=== PATIENT | female | born 1985 | race Caucasian/White ===

== ENCOUNTER 2020-01-23 22:14 | Emergency (ER) | payer MEDICAID, OTHER ==
--- NOTE | 2020-01-23 22:57 | EDM.PDOC ---
ED HPI GENERAL MEDICAL PROBLEM - General Chief Complaint: Skin Complaint Stated Complaint: LEFT TOP FOOT INJURY Time Seen by Provider: 01/23/20 22:36 Source of Information: Reports: Patient, Other (Caregiver at [facility]) History Limitations: Reports: No Limitations - History of Present Illness INITIAL COMMENTS - FREE TEXT/NARRATIVE: Mrs. Canas is a very pleasant 34-year-old woman with a past medical history significant for IV methamphetamine injection, who states that she developed a purplish lesion to the superior/lateral aspect of her left foot after injecting methamphetamine at that site around 4 months ago. She has not had a fever, and the lesion does not drain. She did not seek medical attention for it until yesterday, , 01/22/2020, when she presented to the walk-in clinic. She was told that the lesion likely represented some sort of a vascular abnormality, and she was told that a surgeon's office would contact her on her before this coming 01/28/2020. She has not heard from them yet. She now presents to the ED after striking the lesion at work, causing its size to increase. Here in the ED, the patient is found to be hemodynamically stable, afebrile, saturating 97% on room air. The patient states that she has been clean and sober since 11/13/2019. Other than the left foot lesion, the patient denies recent fever, chills, sore throat, ear pain, nasal or sinus congestion, cough, dyspnea, chest pain, palpitations, nausea, vomiting, constipation, diarrhea, abdominal pain, urinary symptoms, recent weight gain or weight loss, recent bloody bowel movements or black bowel movements, recent joint aches, headaches, or rashes. The patient does not have a PCP. Left Foot Pain Score (Numeric/FACES): 4 - Related Data Allergies Allergy/AdvReac Type Severity Reaction Status Date / Time No Known Allergies Allergy Verified 01/23/20 22:33 Home Meds: Home Meds OXcarbazepine [Oxcarbazepine] 150 mg PO BID 01/23/20 [History] cloNIDine HCL [Catapres] 0.2 mg PO BEDTIME 01/23/20 [History] cloNIDine [Catapres] 0.1 mg PO QAM 01/23/20 [History] Past Medical History HEENT History: Reports: Impaired Vision (wears glasses) Psychiatric History: Reports: Addiction (methamphetamine, alcohol), Anxiety, Depression, Panic Attack - Past Surgical History HEENT Surgical History: Reports: Oral Surgery (wisdom teeth extracted) Female Surgical History: Reports: Other (See Below) (LEEP) Dermatological Surgical History: Reports: Skin Graft (BLEs) Social & Family History - Family History Family Medical History: Noncontributory - Tobacco Use Smoking Status *Q: Current Every Day Smoker Years of Tobacco use: 28 Packs/Tins Daily: 0.5 Packs/Tins Daily Comment: Down from 1 ppd Second Hand Smoke Exposure: No - Caffeine Use Caffeine Use: Reports: Coffee, Energy Drinks, Soda, Tea - Alcohol Use Alcohol Use History: Yes Date of Last Drink: 11/13/19 Alcohol Use Frequency: Binges - Recreational Drug Use Recreational Drug Use: Yes Drug Use in Last 12 Months: Yes Recreational Drug Type: Reports: Marijuana/Hashish (last smoked 11/13/2019), Methamphetamine (last snorted, smoked, injected 11/13/2019) - Living Situation & Occupation Living situation: Reports: (), Other (Clean living home) Occupation: Employed ([employer]) ED ROS GENERAL - Review of Systems Review Of Systems: Comprehensive ROS is negative, except as noted in HPI. ED EXAM, SKIN/RASH Exam: See Below Exam Limited By: No Limitations General Appearance: Alert, WD/WN, No Apparent Distress Extremities: Other (There is a circular area of erythema measuring approximately 4 cm diameter on the superior/lateral aspect of the patient's left foot, within which is an approximately 3.5 x 2 cm raised purplish lesion, consistent with a hematoma. No increased calor to the left foot, when compared to the right. Neurovascular status of the left lower extremity is intact.) Course - Vital Signs Last Recorded V/S: Last Vital Signs Temp 36.3 C 01/23/20 22:31 Pulse 84 01/23/20 22:31 Resp 18 01/23/20 22:31 BP 139/86 01/23/20 22:31 Pulse Ox 97 01/23/20 22:31 - Re-Assessments/Exams Free Text/Narrative Re-Assessment/Exam: 01/23/20 22:52 As above, the patient has what appears to be a hematoma to the superior/lateral aspect of her left foot. Is does not appear to be infected, and I am not recommending antibiotics at this time. I am recommending that she simply take care to avoid injuring it, because if the skin tears, it will likely bleed a great deal. Since she was told at the walk-in clinic yesterday that she may not get a call from a surgeon's office until Sunday, I will refer her to Dr. Fuchs, whom she can call this coming Sunday. Departure - Departure Time of Disposition: 22:54 Disposition: Home, Self-Care 01 Condition: Good Clinical Impression: Hematoma of left foot - Discharge Information *PRESCRIPTION DRUG MONITORING PROGRAM REVIEWED*: Not Applicable *COPY OF PRESCRIPTION DRUG MONITORING REPORT IN PATIENT SIMI: Not Applicable Referrals: Lise Slade MD [Physician] - Additional Instructions: You were seen in the emergency room for worsening inflammation of a purplish lesion on the upper outer side of your left foot. Based on your history and physical examination, the lesion appears to be a hematoma = collection of blood. The lesion does not appear to be infected, and we are not recommending antibiotics at this time. We recommend that you keep the lesion clean with ordinary soap and water. Pat dry, then leave alone. You can apply a large Band-Aid, if necessary for work conditions, but we recommend that you do not apply Neosporin to the lesion. Follow-up with the Surgeon Dr. Lise Slade at the next available appointment. If any other problems, please do not hesitate to return to the ER. Sepsis Event Note (ED) - Evaluation Sepsis Screening Result: No Definite Risk - Focused Exam Vital Signs: Vital Signs Temp Pulse Resp BP Pulse Ox 01/23/20 22:31 36.3 C 84 18 139/86 97
== END 2020-01-23 23:05 | disposition home or self-care (01) ==
LOC: JD.ED 22:14
DX: S90.32XA Contusion of left foot, initial encounter (principal); F17.210 Nicotine dependence, cigarettes, uncomplicated; W22.8XXA Striking against or struck by other objects, initial encounter; Y99.0 Civilian activity done for income or pay
CPT/HCPCS: 99282

== ENCOUNTER 2020-07-04 01:22 | Emergency (ER) | payer MEDICAID ==
--- NOTE | 2020-07-04 01:48 | EDM.PDOC ---
ED HPI GENERAL MEDICAL PROBLEM - General Chief Complaint: Lower Extremity Injury/Pain Stated Complaint: INJURED LEFT ANKLE Time Seen by Provider: 07/04/20 01:33 Source of Information: Reports: Patient History Limitations: Reports: No Limitations - History of Present Illness INITIAL COMMENTS - FREE TEXT/NARRATIVE: This is a 35-year-old female. Tonight around 8 or 9:00 he stepped on a curb wrong and had an inversion injury to her left ankle. She thought she could tough it out but it got more painful and she feels like her toes are numb so she comes to the ER for evaluation. She does have a history of skin graft to that left ankle and foot. She denies any other acute injuries. Left Ankle Pain Score (Numeric/FACES): 3 - Related Data Allergies Allergy/AdvReac Type Severity Reaction Status Date / Time No Known Allergies Allergy Verified 07/04/20 01:39 Home Meds: Home Meds OXcarbazepine [Oxcarbazepine] 150 mg PO BID 01/23/20 [History] cloNIDine HCL [Catapres] 0.2 mg PO BEDTIME 01/23/20 [History] cloNIDine [Catapres] 0.1 mg PO QAM 01/23/20 [History] Past Medical History HEENT History: Reports: Impaired Vision (wears glasses) Other HEENT History: glasses Cardiovascular History: Reports: Hypertension Genitourinary History: Reports: Other (See Below) Other Genitourinary History: leep surgery 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: Musculoskeletal History: Reports: Other (See Below) Other Musculoskeletal History: skin graffs bilateral knees, bilateral feet, right hand Psychiatric History: Reports: Addiction (methamphetamine, alcohol), Anxiety, Depression, Panic Attack Dermatologic History: Reports: Other (See Below) Other Dermatologic History: skin graffs - Past Surgical History HEENT Surgical History: Reports: Oral Surgery (wisdom teeth extracted) Female Surgical History: Reports: Other (See Below) (LEEP) Dermatological Surgical History: Reports: Skin Graft (BLEs) Social & Family History - Family History Family Medical History: No Pertinent Family History - Caffeine Use Caffeine Use: Reports: Coffee, Energy Drinks, Soda, Tea - Living Situation & Occupation Living situation: Reports: (), Other (Clean living home) Occupation: Employed ([employer]) Review of Systems - Review of Systems Review Of Systems: See Below Constitutional: Denies: Chills, Fever Eyes: Reports: No Symptoms Ears: Reports: No Symptoms Nose: Reports: No Symptoms Mouth/Throat: Reports: No Symptoms Respiratory: Denies: Shortness of Breath, Cough Cardiovascular: Reports: No Symptoms GI/Abdominal: Reports: No Symptoms Genitourinary: Reports: No Symptoms Musculoskeletal: Reports: Foot Pain, Other (Ankle pain) Skin: Reports: No Symptoms Neurological: Reports: No Symptoms Psychiatric: Reports: No Symptoms ED EXAM, GENERAL - Physical Exam Exam: See Below Exam Limited By: No Limitations General Appearance: Alert, WD/WN, No Apparent Distress Eye Exam: Bilateral Eye: Normal Inspection Ears: Normal External Exam Nose: Normal Inspection Head: Normocephalic Neck: Supple Respiratory/Chest: No Respiratory Distress Back Exam: Full Range of Motion Extremities: Other (Left ankle reveals tenderness on the lateral malleolus but no significant or severe swelling, she is also tender over the proximal forefoot and the fourth and fifth proximal metatarsals. She has no medial malleolus tenderness noted. She has good capillary refill of each of her 5 toes and they are warm. She does complain of some numbness in the entire toes. She is able to dorsiflex and plantarflex some but side to side movement is tender. There is no other acute lower extremity injury or upper extremity injury.) Psychiatric: Normal Affect, Normal Mood Skin Exam: Warm, Dry Course - Vital Signs Last Recorded V/S: Last Vital Signs Temp 97.5 F 07/04/20 01:33 Pulse 125 H 07/04/20 01:33 Resp 20 07/04/20 01:33 BP 156/96 H 07/04/20 01:33 Pulse Ox 97 07/04/20 01:33 - Orders/Labs/Meds Orders: Active Orders 24 hr Category Date Time Status Ankle Min 3V Lt [CR] Stat Exams 07/04/20 01:45 Ordered Foot Comp Min 3V Lt [CR] Stat Exams 07/04/20 01:45 Taken DME for Discharge [COMM] Stat Oth 07/04/20 02:46 Ordered - Radiology Interpretation Free Text/Narrative:: X-rays of the left foot do not reveal any acute fractures X-rays of the left ankle do not reveal any acute fractures. - Re-Assessments/Exams Free Text/Narrative Re-Assessment/Exam: 07/04/20 02:47 Spoke to the patient regarding the x-ray results. She does not want crutches so we can fit her with a walking boot so that she can continue to work. The walking boot will be fitted by the nurse and dispensed from the ER by the provider. It is a cam left-sided walking boot that is provided for discharge. Departure - Departure Time of Disposition: 02:48 Disposition: Home, Self-Care 01 Condition: Fair Clinical Impression: Left ankle sprain Qualifiers: Encounter type: initial encounter Involved ligament of ankle: tibiofibular ligament Qualified Code(s): S93.432A - Sprain of tibiofibular ligament of left ankle, initial encounter Sprain of left foot Qualifiers: Encounter type: initial encounter Qualified Code(s): S93.602A - Unspecified sprain of left foot, initial encounter - Discharge Information *PRESCRIPTION DRUG MONITORING PROGRAM REVIEWED*: Not Applicable *COPY OF PRESCRIPTION DRUG MONITORING REPORT IN PATIENT SIMI: Not Applicable Instructions: Ankle Sprain, [id number], Foot Sprain, How to Use Cold Therapy Referrals: PCP,Not In Area [Primary Care Provider] - Forms: ED Department Discharge, ED Return to Work/School Form Additional Instructions: Use ice on and off for the next 24 to 48 hours on the areas that hurt, take Tylenol or ibuprofen as needed for pain, wear the walking boot when you are up and around and at work but take it off at nighttime when you are sleeping, follow-up with your family doctor this coming week for recheck, return to the ER if needed Sepsis Event Note (ED) - Evaluation Sepsis Screening Result: No Definite Risk - Focused Exam Vital Signs: Vital Signs Temp Pulse Resp BP Pulse Ox 07/04/20 01:33 97.5 F 125 H 20 156/96 H 97 - My Orders Last 24 Hours: My Active Orders 07/04/20 01:45 Ankle Min 3V Lt [CR] Stat Foot Comp Min 3V Lt [CR] Stat 07/04/20 02:46 DME for Discharge [COMM] Stat - Assessment/Plan Last 24 Hours: My Active Orders 07/04/20 01:45 Ankle Min 3V Lt [CR] Stat Foot Comp Min 3V Lt [CR] Stat 07/04/20 02:46 DME for Discharge [COMM] Stat
--- NOTE | 2020-07-04 09:57 | CR ---
Left foot: 3 views of the left foot were obtained. Comparison: No previous foot exam is available. Small metallic foreign body is projected between the fourth and fifth toes. Uncertain if this is outside the patient or represents a mild foreign body. Joint spaces are preserved. No acute fracture, dislocation or other bony abnormality is appreciated. Impression: 1. Metallic foreign body as noted above. 2. No acute bony abnormality is seen. Diagnostic code #3
--- NOTE | 2020-07-04 09:58 | CR ---
Left ankle: 3 views of the left ankle were obtained. Comparison: No prior ankle imaging is available. Soft tissue swelling is noted. Ankle mortise is symmetric. No acute fracture, dislocation or other bony abnormality is appreciated. Impression: 1. Soft tissue swelling. 2. No acute osseous abnormality is appreciated. Diagnostic code #2
== END 2020-07-04 03:03 | disposition home or self-care (01) ==
LOC: JD.ED 01:22
DX: S93.432A Sprain of tibiofibular ligament of left ankle, initial encounter (principal); S93.602A Unspecified sprain of left foot, initial encounter; I10 Essential (primary) hypertension; Z79.899 Other long term (current) drug therapy; X50.9XXA Other and unspecified overexertion or strenuous movements or postures, initial encounter
CPT/HCPCS: 73610-26-LT; 73610-LT; 73630-26-LT; 73630-LT; 99282; 99283-25

== ENCOUNTER 2020-08-15 12:55 | Emergency (ER) | payer MEDICAID, OTHER ==
[2020-08-15] MEDS ORDERED: Diphtheria,Pertussis(Acell),Tetanus Vaccine 0.5 ML Syringe IM ONE (13:07)
[2020-08-15] MEDS ORDERED: Lidocaine 1% 10 ML MDV INJECT ONE (13:17)
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
== END 2020-08-15 14:30 | disposition home or self-care (01) ==
LOC: JD.ED 12:55
DX: S61.215A Laceration without foreign body of left ring finger without damage to nail, initial encounter (principal); I10 Essential (primary) hypertension; Z79.899 Other long term (current) drug therapy; Z72.0 Tobacco use; W26.8XXA Contact with other sharp object(s), not elsewhere classified, initial encounter
CPT/HCPCS: 12001; 90471; 90715; 99282; 99282-25

== ENCOUNTER 2020-09-23 14:54 | Emergency (ER) | payer MEDICAID ==
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
[2020-09-23] MEDS ORDERED: Dextrose 5%-0.9% NaCl 1,000 ML IV SCH (15:30)
[2020-09-23] MEDS ORDERED: LORazepam 2 MG/ML SDV IVPUSH ONE (15:39)
[2020-09-23] MEDS: Potassium Chloride 10 MEQ in Premix Bag 1 BAG IV SCH ×2 (15:58→17:41)
[2020-09-23] MEDS ORDERED: Potassium Chloride 10 MEQ in Premix Bag 1 BAG IV ONE (16:41)
== END 2020-09-23 17:40 | disposition home or self-care (01) ==
LOC: JD.ED 14:54
DX: E87.6 Hypokalemia (principal); I10 Essential (primary) hypertension; Z79.899 Other long term (current) drug therapy; Z72.0 Tobacco use
CPT/HCPCS: 36415; 80048; 96365; 99284; J3480; J7042

== ENCOUNTER 2020-09-27 10:05 | Day surgery (SDC) | payer MEDICAID ==
[~2020-09-27 10:05] MED LIST: Lactated Ringers 1,000 ML IV SCH; Lidocaine 1%/Sod Bicarbonate in NS 8.4% 1 ML Syringe IDERM PRN; Sodium Chloride 0.9% 10 ML Syringe FLUSH PRN
[2020-09-27] MEDS ORDERED: Midazolam 1 MG/ML 2 ML SDV ONE (10:20)
[2020-09-27] MEDS ORDERED: fentaNYL 100 MCG/2 ML SDV ONE (10:20)
[2020-09-27] MEDS ORDERED: Lidocaine 2% with EPINEPHrine 1:200,000 20 ML SDV ONE (10:21)
[2020-09-27] MEDS ORDERED: Dexmedetomidine 200 MCG/2 ML SDV ONE (10:21)
[2020-09-27] MEDS ORDERED: Ropivacaine 0.5% 5 MG/ML 30 ML SDV ONE (10:38)
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
--- NOTE | 2020-09-27 12:07 | PCM.PRNOTE ---
- Free Text/Narrative Note: Postoperative regional pain control requested by surgeon. Pre-op Dx: Left Clavicle fracture Surgical procedure: Left Clavicle fracture ORIF Procedure: Left selective upper root interscalene block + left superficial cervical plexus block + left clavipectoral fascia injection with U/S guidance Requesting physician: Dr. David Eddy Risks and benefits discussed with the patient preoperatively including infection, bleeding, incomplete or failed block, possible nerve damage, local anesthetic toxicity. Chart reviewed, VS stable. Permit signed. Patient in preoperative room 2, stable , alert and awake. Time out performed at 11:12. Oxygen 3L via NC. Left side of the neck, shoulder and clavicle were prepped with Chloraprep x 1 and allowed to dry. Midazolam IV 4 mg given. Under aseptic technique, the brachial plexus and sternocleidomastoid muscle was identified at C5-6 level under ultrasound prior to needle insertion. Local infiltration with 2mls of 1% Lidocaine. 2" Stimuplex needle #22 G was inserted under US guidance. Under direct visualization of needle tip the injection into the facial plane between anterior scalene and sternocleidomastoid muscle was performed. Local anesthetic injected: 2% Lidocaine PF 1:200k epinephrine 5 mls and 0.5% Ropivacaine 5 mls in divided doses, maintaining negative aspiration. Then the needle was repositioned closer to the upper root of brachial plexus in the interscalene space, and additional 5 ml of 0.5% Ropivacaine with 1:200k of epinephrine and additives was injected under direct U/S guidance maintaining negative aspiration. Next, the probe was repositioned on top of the left clavicle and pectoralis major, subclavius and intercostal muscle layers were identified adjacent to the clavicle. Under direct ultrasound guidance 2% Lidocaine PF 1:200k epinephrine 5 mls and 10 mls of 0.5% Ropivacaine 1:200k of epinephrine and additives were injected under clavipectoral fascia medial to the fracture, maintaining negative aspiration. Blood was noted at one point, the needle was repositioned and cleared with NS and on subsequent aspiration no blood was noted. After that the probe was repositioned lateral to the fracture on top of the clavicle,and under direct ultrasound guidance 10 mls of 0.5% Ropivacaine with 1:200k of epinephrine and additives were injected under clavipectoral fascia lateral to the fracture, maintaining negative aspiration. Total amount of Ropivacaine used: 25 mls. Additives: 8 mg of Dexamethasone and 40 mcg of Dexmedetomidine. No local anesthetic toxicity was noted. Patient is drowsy but arousable, stable and tolerated the procedure well. Please see the attached U/S images Time: 11:12 - 11:32
[2020-09-27] MEDS ORDERED: Bupivacaine 0.25% 10 ML SDV ONE (12:12)
[2020-09-27] MEDS ORDERED: Propofol 200 MG/20 ML SDV ONE ×3 (13:37→14:25)
[2020-09-27] MEDS ORDERED: ceFAZolin 1 GM Vial ONE (13:50)
[2020-09-27] MEDS ORDERED: Lactated Ringers 1,000 ML ONE (14:34)
--- NOTE | 2020-09-27 15:18 | PCM48HPAN ---
Post Anesthesia Note - EVALUATION WITHIN 48HRS OF ANESTHETIC Vital Signs in Normal Range: Yes Patient Participated in Evaluation: Yes Respiratory Function Stable: Yes Airway Patent: Yes Cardiovascular Function Stable: Yes Hydration Status Stable: Yes Pain Control Satisfactory: Yes Nausea and Vomiting Control Satisfactory: Yes Mental Status Recovered: Yes Vital Signs: Last Vital Signs Temp 97.6 F 09/27/20 14:57 Pulse 97 09/27/20 15:00 Resp 12 09/27/20 14:57 BP 142/78 H 09/27/20 15:00 Pulse Ox 98 09/27/20 15:00
--- NOTE | 2020-09-27 15:43 | CR ---
Left clavicle: 3 views left clavicle were obtained. Study was obtained utilizing C-arm device. Comparison: No prior clavicle study is available. Study shows plate and screws within the clavicle affixing previous fracture. Fluoroscopy time is given as 3.0 seconds. Impression: 1. Procedural study as noted above. Diagnostic code #2
--- NOTE | 2020-09-27 17:59 | PCM.OPNOTE ---
- General Post-Op/Procedure Note Date of Surgery/Procedure: 09/27/20 Operative Procedure(s): open reduction internal fixation left midshaft clavicle fracture Pre Op Diagnosis: left midshaft clavicle fracture Post-Op Diagnosis: Same Anesthesia Technique: MAC, Regional Block Primary Surgeon: David Patel Anesthesia Provider: Yazan Zimmer Social Work Specialist: Darlyn Workman EBL in mLs: 10 Complications: None Condition: Good Free Text/Narrative:: Intake & Output 09/27/20 09/27/20 09/27/20 06:59 14:59 22:59 Intake Total 660 Balance 660
--- NOTE | 2020-10-03 18:52 | OR ---
DATE OF OPERATION: 09/27/2020 SURGEON: David Patel MD OPERATION PERFORMED: Open reduction and internal fixation of left midshaft clavicle fracture. PREOPERATIVE DIAGNOSIS: Left midshaft clavicle fracture. POSTOPERATIVE DIAGNOSIS: Left midshaft clavicle fracture. ANESTHESIA: MAC with regional block. ANESTHESIA PROVIDER: Shala Mathew. LEASING ASSOCIATE: Darlyn Workman PA-C ESTIMATED BLOOD LOSS: 10 mL. COMPLICATIONS: None. CONDITION: Stable. DESCRIPTION OF PROCEDURE: The patient was identified in the preoperative holding area. Proper site was marked and identified by the surgeon. The patient was taken back to the operating theater where after adequate anesthesia, the patient was placed supine on radiolucent table. Left upper extremity was then sterilely prepped and draped in the usual sterile fashion. OR wide time-out was performed. The patient received 2 grams of IV Ancef. At this time, the patient was placed in the reverse Trendelenburg position, standard anterior incision was made over the left midshaft clavicle fracture. This was taken through the platysma level. The patient was noted to have complete stripping of the periosteum near the fracture site. At this time, fracture site was identified it was curetted and rongeured of all fracture hematoma. [id number] reduction clamps were then used with a 6-hole [place] compression superior clavicle plate, it was found to be in adequate position on both AP and oblique views of the clavicle. At this time, one 3.5 cortical screw was placed distally and then another one was placed proximally from the fracture site and compression through the plate. At this time, 2 more locking screws were then placed both proximally and distally to the fracture site, had anatomic reduction on C-arm fluoroscopy on both AP and oblique views. At this time secondary to the patient's substance abuse issues as well as completely stripping the periosteum, I did place demineralized bone matrix around the fracture site to aid in healing. Before this, adequate saline was irrigated through the wound, 0 Vicryl was used for closure of the platysma level, 2-0 Vicryl was used subcutaneously and Prineo was used for closure of the skin. The patient had a sterile soft dressing applied and sling and sent to PACU in stable condition. MMODAL /[id number]
== END 2020-09-27 15:46 | disposition home or self-care (01) ==
LOC: JD.SDS 10:05
PROVIDERS: ATTEND Orthopaedic Surgery
DX: S42.022A Displaced fracture of shaft of left clavicle, initial encounter for closed fracture (principal); I10 Essential (primary) hypertension; F17.210 Nicotine dependence, cigarettes, uncomplicated; E04.9 Nontoxic goiter, unspecified; F15.10 Other stimulant abuse, uncomplicated; E87.6 Hypokalemia; Z01.812 Encounter for preprocedural laboratory examination; Z20.822 Contact with and (suspected) exposure to COVID-19; Z79.899 Other long term (current) drug therapy; Z98.890 Other specified postprocedural states; X58.XXXA Exposure to other specified factors, initial encounter
CPT/HCPCS: 23515; 36415; 76000; 80048; 80306; 81025; 87635; 87641; C1713; J0690; J2250; J2704; J2795; J3010; J7120; 00450; 64415; 76942; J3490; U0002

== ENCOUNTER 2025-06-06 20:49 | Emergency (ER) | payer MEDICAID ==
[2025-06-06] MEDS: Ketorolac 30 MG/ML SDV IM ONE (22:21)
== END 2025-06-06 22:24 | disposition home or self-care (01) ==
LOC: JD.ED 20:49
DX: K08.89 Other specified disorders of teeth and supporting structures (principal); I10 Essential (primary) hypertension; F17.200 Nicotine dependence, unspecified, uncomplicated; Z79.899 Other long term (current) drug therapy
CPT/HCPCS: 96372; 99282; A9270; J1885